=== PATIENT | female | born 1970 | race Caucasian/White ===

== ENCOUNTER 2019-11-24 09:27 | Emergency (ER) | payer OTHER, SELFPAY | END 2019-11-24 10:00 | disposition home or self-care (01) | LOC: BURERS 09:27 | DX: J20.8 Acute bronchitis due to other specified organisms (principal); F17.210 Nicotine dependence, cigarettes, uncomplicated; Z79.899 Other long term (current) drug therapy | CPT/HCPCS: 99283 ==